=== PATIENT | male | born 1990 | race African-American/Black ===

== ENCOUNTER 2016-07-19 10:23 | Emergency (ER) | payer OTHER ==
[~2016-07-19] VITALS: Ht 182.9 cm; Wt 109.1 kg
[~2016-07-19 10:23] MED LIST: AMOXICILLIN 50500 MG PO; BIAXIN 500MG T500 MG PO; CARAFATE 1GM1 G PO; CEPHALEXIN500 M1 PO; CLARITHROMYCIN500 M1 PO; NO HOME MEDICATIONS; NORCO 325 MG-51 TAB PO; OMEPRAZOLE40 MG PO; PREDNISONE10 MG PO; PRILOSEC 20MG20 MG PO; ZOFRAN 4MG T4 MG/TAB PO
[2016-07-19 10:24] VITALS: BP 135/67; TEMP 98.8
[2016-07-19 11:23] LABS: BASO % 0.4 % (0.0-2.0); EOS % 0.2 % (0-4.0); GRAN # 3.1 (1.4-6.5); GRAN % 64.9 % (42.2-75.2); HEMATOCRIT 44.5 % (42.0-52.0); HEMOGLOBIN 15.2 g/dl (13.5-18.0); LYMPH # 1.3 (1.2-3.4); LYMPH % 27.9 % (20.0-51.0); MEAN CELL VOLUME 84 fl (80.0-100.0); MEAN CORPUSCULAR HEMOGLOBIN 29 pg (27.0-31.0); MEAN CORPUSCULAR HGB CONC 34 g/dl (33.0-37.0); MEAN PLATELET VOLUME 8.4 fl (7.4-10.4); MONO # 0.3 (0.1-0.6); MONO % 6.4 % (1.7-9.3); PLATELET COUNT 260 K/mm3 (130-400); RED BLOOD COUNT 5.28 M/mm3 (4.20-5.60); REDCELL DISTRIBUTION WIDTH-CV 13.1 % (11.5-14.5); WHITE BLOOD COUNT 4.7 K/mm3 (4.8-10.8)
[2016-07-19 11:26] LABS: PH 7 (5-8); SQUAMOUS EPITHELIAL None Seen /hpf; URINE APPEARANCE Clear; URINE BACTERIA None Seen /hpf; URINE BILIRUBIN Negative (NEGATIVE); URINE BLOOD Negative (NEGATIVE); URINE COLOR Yellow; URINE GLUCOSE Negative (NEGATIVE); URINE KETONE Negative (NEGATIVE); URINE RBC 0-2 /hpf; URINE UROBILINOGEN Negative (NEGATIVE); URINE WBC 0-2 /hpf
[2016-07-19 11:29] LABS: ADJUSTED CALCIUM 9.2 mg/dL (8.4-10.2); ALBUMIN 4.7 gm/dL (3.5-5.0); BILIRUBIN,TOTAL 0.8 mg/dL (0.0-1.0); CALCIUM 9.8 mg/dL (8.4-10.2); CREATININE, serum 1.13 mg/dL (0.66-1.25); TOTAL PROTEIN 8.4 gm/dL (6.4-8.2)
[2016-07-19] MEDS ORDERED: PRILOSEC 20MG20 MG PO (12:52)
[2016-07-19 13:01] VITALS: PULSE 79
== END 2016-07-19 13:02 | disposition home or self-care (01) ==
LOC: COL.ER 10:23
PROVIDERS: Family Medicine
DX: K29.70 Gastritis, unspecified, without bleeding (principal)
CPT/HCPCS: C9113; J2405; J7030; Q9967

== ENCOUNTER 2017-04-25 13:22 | Emergency (ER) | payer OTHER ==
[~2017-04-25] VITALS: Ht 182.9 cm; Wt 100.0 kg
[2017-04-25 13:25] VITALS: BP 133/94; TEMP 98.6
[2017-04-25 15:00] VITALS: PULSE 74
== END 2017-04-25 15:00 | disposition home or self-care (01) ==
LOC: COL.ER 13:22
DX: S93.401A Sprain of unspecified ligament of right ankle, initial encounter (principal); Z87.891 Personal history of nicotine dependence; X50.1XXA Overexertion from prolonged static or awkward postures, initial encounter

== ENCOUNTER 2017-05-02 08:24 | Outpatient (RCR) | payer OTHER | END 2017-07-31 | disposition home or self-care (01) | LOC: WSOH | DX: S90.01XA Contusion of right ankle, initial encounter (principal); X50.1XXA Overexertion from prolonged static or awkward postures, initial encounter; Y99.0 Civilian activity done for income or pay ==